=== PATIENT | female | born 1970 ===

== ENCOUNTER 2019-01-04 12:16 | Emergency (ER) | payer OTHER ==
[~2019-01-04] VITALS: Ht 172.7 cm; Wt 95.3 kg
[2019-01-04] MEDS ORDERED: LATUDA20 MG PO (13:21)
== END 2019-01-04 14:40 | disposition home or self-care (01) ==
LOC: ER 12:16
DX: G44.209 Tension-type headache, unspecified, not intractable (principal); J70.5 Respiratory conditions due to smoke inhalation; R09.81 Nasal congestion; T59.894A Toxic effect of other specified gases, fumes and vapors, undetermined, initial encounter; Y92.813 Airplane as the place of occurrence of the external cause